=== PATIENT | female | born 1965 | race American Indian/Alaskan Native ===

== ENCOUNTER 2017-11-29 19:01 | Emergency (ER) | payer SELFPAY ==
[2017-11-29 20:33] LABS: Basophils # (Auto) 0.1 K/mm3 (0.0-0.1); Basophils % (Auto) 0.6 % (0.0-1.8); Eosinophils # (Auto) 0.3 K/mm3 (0.0-0.4); Eosinophils % (Auto) 2.3 % (0.0-4.3); Hematocrit 42.9 % (30.3-42.9); Hemoglobin 14.4 gm/dl (10.1-14.3); Lymphocytes # (Auto) 2.6 K/mm3 (1.2-5.4); Mean Corpuscular HGB Conc 33 % (30-34); Mean Corpuscular Hemoglobin 30 pg (28-32); Mean Corpuscular Volume 89 fl (79-97); Monocytes # (Auto) 0.9 K/mm3 (0.0-0.8); Monocytes % (Auto) 7.8 % (0.0-7.3); Platelet Count 312 K/mm3 (140-440); Red Cell Distribution Width 13.4 % (13.2-15.2)
[2017-11-29 20:43] LABS: Alanine Aminotransferase 12 units/L (7-56); Albumin 4.1 g/dL (3.9-5); BUN/Creatinine Ratio 18; Blood Urea Nitrogen 14 mg/dL (7-17); Calcium 9.6 mg/dL (8.4-10.2); Hemolysis Index 8; Lipase 31 units/L (13-60)
[2017-11-29] MEDS ORDERED: ZOFRAN IV ONE (22:57)
[2017-11-29] MEDS ORDERED: NACL 0.9% 1000 ML 1,000 ML IV ONE (22:57)
[2017-11-29 23:00] VITALS: BP 171/80
[2017-11-29] MEDS ORDERED: SUBLIMAZE ONE (23:05)
--- NOTE | 2017-11-29 23:09 | Emergency Department Report ---
ED Abdominal Pain HPI - General Chief Complaint: Abdominal Pain Stated Complaint: ABDOMINAL PAIN Time Seen by Provider: 11/29/17 22:45 Source: patient, family Mode of arrival: Ambulatory Limitations: Language Barrier - History of Present Illness Initial Comments: Patient is 52 years old female with no significant past medical history. Patient presented to the ER complaining of right flank pain, started 5 days ago. Patient stated that she went to see her primary care physician and she was prescribed ciprofloxacin. Patient stated that she is unable to keep anything down. She denied any fever or diarrhea. MD Complaint: abdominal pain, flank pain -: days(s) Location: R flank Radiation: none Migration to: no migration Severity scale (0 -10): 7 Quality: sharp Improves With: vomiting Associated Symptoms: nausea. denies: chills, constipation, dysuria - Related Data Allergies Allergy/AdvReac Type Severity Reaction Status Date / Time Penicillins Allergy Rash Verified 11/29/17 19:55 ED Review of Systems ROS: Stated complaint: ABDOMINAL PAIN Other details as noted in HPI Comment: All other systems reviewed and negative ENT: denies: throat pain Respiratory: denies: cough, orthopnea, shortness of breath, SOB with exertion, SOB at rest, wheezing Cardiovascular: denies: chest pain, palpitations, dyspnea on exertion, orthopnea , paroxysmal nocturnal dyspnea Gastrointestinal: abdominal pain, nausea, vomiting. denies: diarrhea, constipation, hematemesis, melena, hematochezia Genitourinary: denies: urgency, dysuria Musculoskeletal: back pain Neurological: denies: headache, weakness, numbness, paresthesias, confusion, abnormal gait ED Past Medical Hx - Past Medical History Previous Medical History?: No - Surgical History Past Surgical History?: Yes Hx Cholecystectomy: Yes - Social History Smoking Status: Never Smoker Substance Use Type: None ED Physical Exam - General Limitations: Language Barrier General appearance: alert, in no apparent distress - Head Head exam: Present: atraumatic, normocephalic - Eye Eye exam: Present: normal appearance - ENT ENT exam: Present: normal exam, normal orophraynx, mucous membranes dry - Neck Neck exam: Present: normal inspection, full ROM. Absent: tenderness, meningismus, lymphadenopathy, thyromegaly - Respiratory Respiratory exam: Present: normal lung sounds bilaterally. Absent: respiratory distress, wheezes, rales, rhonchi, stridor, chest wall tenderness, accessory muscle use, decreased breath sounds, prolonged expiratory - Cardiovascular Cardiovascular Exam: Present: regular rate, normal rhythm, normal heart sounds - GI/Abdominal GI/Abdominal exam: Present: soft, normal bowel sounds. Absent: distended, tenderness, guarding, rebound, rigid, organomegaly, mass, bruit, pulsatile mass , hernia - Extremities Exam Extremities exam: Present: normal inspection, full ROM, normal capillary refill - Back Exam Back exam: Present: normal inspection, full ROM, CVA tenderness (R). Absent: tenderness, CVA tenderness (L), muscle spasm, paraspinal tenderness, vertebral tenderness - Neurological Exam Neurological exam: Present: alert, oriented X3, CN II-XII intact, normal gait - Skin Skin exam: Present: warm, intact, normal color. Absent: cyanosis, diaphoretic, erythema, urticaria ED Course Vital Signs 11/29/17 11/29/17 11/29/17 19:47 22:58 23:15 Temperature 98.2 F Pulse Rate 65 63 Respiratory 19 16 16 Rate Blood Pressure 194/115 Blood Pressure 171/80 [Left] O2 Sat by Pulse 99 98 99 Oximetry - Reevaluation(s) Reevaluation #1: 11/30/17 01:49 Patient stated that she is feeling much better. I informed the patient and her daughter about the CT abdomen and pelvis results which showed a right ureteric stone partially obstructing. I gave them Dr. Gonzalez TO follow-up in the next 2-3 days. ED Medical Decision Making - Lab Data Result diagrams: 11/29/17 20:12 11/29/17 20:12 - Radiology Data Radiology results: report reviewed Referring Physician: BRAXTON BERNARD Patient Name: SHAYLA POZO Date of : 1965 Sex: Female Report Date: 2017-11-30 Report Status: Finalized Findings [address] [address] Cat Scan Report Signed Patient: SHAYLA ARAGON MA MR#: [id number] : 1965 Acct:[id number] Age/Sex: 52 / F ADM Date: 11/29/17 Loc: ED Attending Dr: Ordering Physician: BRAXTON BERNARD Date of Service: 11/30/17 Procedure(s): CT abdomen pelvis w con Accession Number(s): [id number] cc: BRAXTON BERNARD FINAL REPORT EXAM: CT ABDOMEN PELVIS W CON HISTORY: abdominal pain/RT Flank pain TECHNIQUE: Routine axial imaging was obtained of the abdomen and pelvis following the intravenous injection of 100 cc of Omnipaque 300. Delayed imaging was obtained through the kidneys ureters and bladder. Sagittal and coronal reconstructions were reviewed. FINDINGS: The lung bases reveal interstitial prominence in both lower lobes with small effusions. Interstitial edema cannot be excluded. The gallbladder has been removed. The biliary tree is not dilated. The liver, pancreas, spleen, and adrenal glands appear normal. There is moderate right-sided hydronephrosis secondary to a partially obstructing 6.8 mm stone in the proximal right ureter. There are no additional renal stones. The left kidney is unremarkable. The vascular structures enhance normally. The bowel loops are normal in caliber and course. There are multiple uncomplicated diverticula in the descending colon. The appendix is not seen. In the pelvis the uterus and bladder appear normal. Adenopathy is not identified. The skeletal structures do not show any acute changes. IMPRESSION: Moderate right-sided hydronephrosis secondary to a partially obstructing 6.8 mm stone in the proximal right ureter. Interstitial prominence in both lung bases with small effusions. Interstitial edema cannot be excluded. Uncomplicated colonic diverticulosis in the descending colon. Cholecystectomy. Transcribed By: RB Dictated By: PAULA ZHU MD Electronically Authenticated By: PAULA ZHU MD Signed Date/Time: 11/30/17129 DD/ 9 TD/TT: 11/30/17129 Critical care attestation.: If time is entered above; I have spent that time in minutes in the direct care of this critically ill patient, excluding procedure time. ED Disposition Clinical Impression: Abdominal pain, Kidney stone, Ureterolithiasis, Renal colic on right side Disposition: -01 TO HOME OR SELFCARE Is pt being admited?: No Condition: Stable Instructions: Kidney Stones (ED), Renal Colic (ED), Abdominal Pain (ED) Referrals: GUDELIA GONZALEZ MD [Staff Physician] - 3-5 Days
[2017-11-29] MEDS: MORPHINE IV ONE (23:15)
[2017-11-29 23:19] LABS: Bacteria,Urine 1+ /HPF (Negative); Bilirubin,Urine NEG (Negative); Blood,Urine MOD (Negative); Color,Urine Yellow (Yellow); Protein,Urine <15 mg/dL mg/dL (Negative); Urobilinogen,Urine < 2.0 mg/dL (<2.0)
[2017-11-29] MEDS ORDERED: SUBLIMAZE IV ONE (23:27)
[2017-11-30] MEDS: MORPHINE IV ONE (00:14)
[2017-11-30] MEDS ORDERED: NACL ONE (00:27)
[2017-11-30] MEDS ORDERED: LEVAQUIN 750MG/150ML 750 MG/150 ML BAG IV ONE (00:32)
--- NOTE | 2017-11-30 01:35 | Cat Scan Report ---
FINAL REPORT EXAM: CT ABDOMEN PELVIS W CON HISTORY: abdominal pain/RT Flank pain TECHNIQUE: Routine axial imaging was obtained of the abdomen and pelvis following the intravenous injection of 100 cc of Omnipaque 300. Delayed imaging was obtained through the kidneys ureters and bladder. Sagittal and coronal reconstructions were reviewed. FINDINGS: The lung bases reveal interstitial prominence in both lower lobes with small effusions. Interstitial edema cannot be excluded. The gallbladder has been removed. The biliary tree is not dilated. The liver, pancreas, spleen, and adrenal glands appear normal. There is moderate right-sided hydronephrosis secondary to a partially obstructing 6.8 mm stone in the proximal right ureter. There are no additional renal stones. The left kidney is unremarkable. The vascular structures enhance normally. The bowel loops are normal in caliber and course. There are multiple uncomplicated diverticula in the descending colon. The appendix is not seen. In the pelvis the uterus and bladder appear normal. Adenopathy is not identified. The skeletal structures do not show any acute changes. IMPRESSION: Moderate right-sided hydronephrosis secondary to a partially obstructing 6.8 mm stone in the proximal right ureter. Interstitial prominence in both lung bases with small effusions. Interstitial edema cannot be excluded. Uncomplicated colonic diverticulosis in the descending colon. Cholecystectomy.
[2017-11-30] MEDS ORDERED: SUBLIMAZE IV ONE (01:54)
== END 2017-11-30 03:00 | disposition home or self-care (01) ==
LOC: ED 19:01
DX: N20.2 Calculus of kidney with calculus of ureter (principal); Z88.0 Allergy status to penicillin
CPT/HCPCS: 36415; 74177; 80053; 81001; 83690; 85025; 96365; 96375; 96376; 99284; J1956; J2270; J2405; J3010; J7030; Q9967